=== PATIENT | male | born 1960 | race Caucasian/White ===

== ENCOUNTER 2024-12-13 11:37 | Inpatient (IN) | payer OTHER ==
[~2024-12-13] VITALS: Ht 172.7 cm; Wt 69.7 kg
[2024-12-13 11:59] VITALS: BP 148/84
[2024-12-13] MEDS ORDERED: diazePAM 10 MG/2 ML SYR IV ONE (12:55)
[2024-12-13 13:14] LABS: BASO % 0.6 % (0.0-1.0); EOS % 0.2 % (1.0-4.0); HEMATOCRIT 42.6 % (42.0-52.0); MEAN CELL VOLUME 95.3 fl (80.0-94.0); MEAN CORPUSCULAR HGB 33.6 pg (27.0-31.0); MEAN CORPUSCULAR HGB CONC 35.2 g/dl (33.0-37.0); MONO # 0.5 10*3/uL (0.1-1.0); MONO % 8.8 % (3.0-9.0); NEUT # 4.2 10*3/uL (2.3-7.9); NEUT % 78.7 % (47.0-73.0); PLATELET COUNT AUTOMATED 110 10*3/uL (130-400); RED BLOOD COUNT 4.47 10*6/uL (4.50-5.90); RED CELL DISTRI WIDTH 13.1 % (0-14.5); WHITE BLOOD COUNT 5.3 10*3/uL (4.8-10.8)
[2024-12-13 13:33] LABS: URINE AMPHETAMINES Negative (1000ng/ml); URINE BARBITURATES Negative (200ng/ml); URINE BENZODIAZEPINES Negative (200ng/ml); URINE CANNABINOIDS (THC) Negative (50ng/ml); URINE COCAINE Negative (300ng/ml); URINE METHADONE Negative (300ng/ml); URINE OPIATES Negative (300ng/ml); URINE PHENCYCLIDINE Negative (25ng/ml)
[2024-12-13 13:37] LABS: ALKALINE PHOSPHATASE 117 U/L (46-116); BUN < 5 mg/dl (9-23); CHLORIDE 100 mmol/L (98-107); ETHYL ALCOHOL < 3.0 mg/dl (<3); POTASSIUM 3.8 mmol/L (3.4-5.1); SGPT/ALT 108 U/L (5-49); TOTAL PROTEIN 7.2 gm/dL (6.0-8.0)
[2024-12-13] MEDS ORDERED: diazePAM 10 MG/2 ML SYR IV PRN (14:25)
[2024-12-13] MEDS ORDERED: IBUPROFEN 600 MG TAB PO PRN (14:25)
[2024-12-13] MEDS ORDERED: Water, Sterile 10 ML VIAL IV PRN (14:25)
[2024-12-13] MEDS ORDERED: Ondansetron Hydrochloride 4 MG/2 ML VIAL IV PRN (14:25)
[2024-12-13] MEDS ORDERED: ACETAMINOPHEN 500 MG TAB PO PRN (14:25)
[2024-12-13] MEDS ORDERED: NICOTINE POLACRILEX 4 MG GUM PO PRN (14:25)
[2024-12-13] MEDS ORDERED: Ondansetron Hydrochloride 4 MG TAB PO PRN (14:25)
[2024-12-13] MEDS ORDERED: Magnesium Hydroxide 30 ML UDC PO PRN (14:30)
[2024-12-13] MEDS ORDERED: BISACODYL 10 MG SUPP R PRN (14:30)
[2024-12-13] MEDS ORDERED: BISACODYL 5 MG TAB PO PRN (14:30)
[2024-12-13] MEDS ORDERED: LORazepam 1 MG TAB PO SCH (16:00)
[2024-12-13 17:47] VITALS: BP 164/86
[2024-12-13 20:00] VITALS: BP 151/86
[2024-12-13] MEDS ORDERED: LORazepam 1 MG TAB PO PRN (20:50)
[2024-12-13] MEDS ORDERED: Nicotine 21 MG PATCH T PRN (21:08)
[2024-12-13] MEDS ORDERED: traZODone Hydrochloride 50 MG TAB PO PRN (22:00)
[2024-12-14] VITALS: BP 138/90; BP 139/91
[2024-12-14 06:39] LABS: BASO # 0.1 10*3/uL (0.0-0.1); BASO % 0.9 % (0.0-1.0); EOS % 0.7 % (1.0-4.0); HEMATOCRIT 42.5 % (42.0-52.0); MEAN CELL VOLUME 95.7 fl (80.0-94.0); MEAN CORPUSCULAR HGB 33.3 pg (27.0-31.0); MEAN CORPUSCULAR HGB CONC 34.8 g/dl (33.0-37.0); MEAN PLATELET VOLUME 9.5 fl (9.6-12.3); MONO # 0.6 10*3/uL (0.1-1.0); MONO % 10.4 % (3.0-9.0); NEUT % 67.4 % (47.0-73.0); PLATELET COUNT AUTOMATED 122 10*3/uL (130-400); RED BLOOD COUNT 4.44 10*6/uL (4.50-5.90); RED CELL DISTRI WIDTH 12.9 % (0-14.5); WHITE BLOOD COUNT 5.9 10*3/uL (4.8-10.8)
[2024-12-14 06:49] LABS: VITAMIN D, 25-HYDROXY 11.4 ng/mL (30-100)
[2024-12-14 06:51] LABS: ALKALINE PHOSPHATASE 112 U/L (46-116); BUN 5 mg/dl (9-23); CHLORIDE 98 mmol/L (98-107); CHOLESTEROL 124 mg/dL (<200); LDL CHOLESTEROL 48 mg/dL (9-159); POTASSIUM 3.6 mmol/L (3.4-5.1); SGPT/ALT 91 U/L (5-49); TOTAL PROTEIN 7.2 gm/dL (6.0-8.0); TRIGLYCERIDES 70 mg/dl (<150)
[2024-12-14] MEDS ORDERED: ERGOCALCIFEROL 50,000 IU CAP (1.25 MG) PO ONE (07:35)
[2024-12-14 08:00] VITALS: BP 165/99
[2024-12-14] MEDS ORDERED: FOLIC ACID 1 MG TAB PO SCH (10:00)
[2024-12-14] MEDS ORDERED: Thiamine 100 MG TAB PO SCH (10:00)
[2024-12-14] MEDS ORDERED: Enoxaparin Sodium 40 MG/0.4 ML SYR SC SCH (10:00)
[2024-12-14] MEDS ORDERED: MULTIVITAMIN 1 TAB TAB PO SCH (10:00)
[2024-12-14 11:47] VITALS: BP 145/86
[2024-12-14 16:00] VITALS: BP 150/90
[2024-12-14] MEDS ORDERED: diazePAM 10 MG/2 ML SYR IV ONE ×2 (17:15→19:05)
[2024-12-14] MEDS ORDERED: LORazepam 1 MG TAB PO SCH (18:00)
[2024-12-14 20:00] VITALS: BP 157/92
[2024-12-14] MEDS ORDERED: LORazepam 1 MG TAB PO PRN (20:55)
[2024-12-14] MEDS ORDERED: hydrOXYzine 50 MG CAP PO PRN (21:00)
[2024-12-15] VITALS: BP 140/94
[2024-12-15] MEDS ORDERED: LORazepam 1 MG TAB PO PRN
[2024-12-15 06:28] LABS: POTASSIUM 3.1 mmol/L (3.4-5.1)
[2024-12-15 06:34] LABS: CHLORIDE 99 mmol/L (98-107)
[2024-12-15 06:40] LABS: BUN < 5 mg/dl (9-23)
[2024-12-15 08:00] VITALS: BP 132/83
[2024-12-15] MEDS ORDERED: POTASSIUM CHLORIDE 20 MEQ TAB PO ONE (08:05)
[2024-12-15] MEDS ORDERED: CALCIUM (TUMS) 500MG PO ONE (08:25)
[2024-12-15] MEDS ORDERED: Menthol/Zinc Oxide 4 GM THIN T SCH ×2 (10:00→22:00)
[2024-12-15] MEDS ORDERED: Cholecalciferol 5,000 IU CAP (125 MCG) PO SCH (10:00)
[2024-12-15] MEDS ORDERED: Menthol/Zinc Oxide 4 GM THIN T PRN (10:35)
[2024-12-15] MEDS ORDERED: diazePAM 10 MG/2 ML SYR IV SCH (10:45)
[2024-12-15 12:00] VITALS: BP 146/89
[2024-12-15 16:00] VITALS: BP 109/77
[2024-12-15 20:00] VITALS: BP 121/82
[2024-12-16] VITALS: BP 115/77
[2024-12-16 06:57] LABS: BUN 7 mg/dl (9-23); CHLORIDE 102 mmol/L (98-107); POTASSIUM 3.8 mmol/L (3.4-5.1)
[2024-12-16 08:00] VITALS: BP 134/86
[2024-12-16] MEDS ORDERED: diazePAM 10 MG/2 ML SYR IV SCH ×2 (08:00→14:00)
[2024-12-16] MEDS ORDERED: Menthol/Zinc Oxide 4 GM THIN T SCH (10:00)
[2024-12-16 12:00] VITALS: BP 120/71
== END 2024-12-16 14:50 | DRG 92 ==
LOC: ED 11:37 → 5E 14:05 → EDHOLD 14:05 → 5E 16:34
PROVIDERS: Emergency Medicine; Internal Medicine; ADMIT Internal Medicine; ATTEND Internal Medicine
PROC: 0HBRXZZ Excision of Toe Nail, External Approach (ICD-10-PCS; principal; 2024-12-15)
PROC: 0HBRXZZ Excision of Toe Nail, External Approach (ICD-10-PCS; 2024-12-15)
PROC: 0HBRXZZ Excision of Toe Nail, External Approach (ICD-10-PCS; 2024-12-15)
PROC: 0HBRXZZ Excision of Toe Nail, External Approach (ICD-10-PCS; 2024-12-15)
PROC: 0HBRXZZ Excision of Toe Nail, External Approach (ICD-10-PCS; 2024-12-15)
PROC: 0HBRXZZ Excision of Toe Nail, External Approach (ICD-10-PCS; 2024-12-15)
PROC: 0HBRXZZ Excision of Toe Nail, External Approach (ICD-10-PCS; 2024-12-15)
PROC: 0HBRXZZ Excision of Toe Nail, External Approach (ICD-10-PCS; 2024-12-15)
PROC: 0HBRXZZ Excision of Toe Nail, External Approach (ICD-10-PCS; 2024-12-15)
PROC: 0HBRXZZ Excision of Toe Nail, External Approach (ICD-10-PCS; 2024-12-15)
DX: G25.2 Other specified forms of tremor (principal); E87.1 Hypo-osmolality and hyponatremia; F10.139 Alcohol abuse with withdrawal, unspecified; R19.7 Diarrhea, unspecified; R74.01 Elevation of levels of liver transaminase levels; R00.0 Tachycardia, unspecified; B35.1 Tinea unguium; L60.2 Onychogryphosis; L85.9 Epidermal thickening, unspecified; Z87.891 Personal history of nicotine dependence; Z82.49 Family history of ischemic heart disease and other diseases of the circulatory system; Y90.0 Blood alcohol level of less than 20 mg/100 ml